=== PATIENT | female | born 1965 | race Caucasian/White ===

== ENCOUNTER 2018-10-07 07:12 | Day surgery (SDC) | payer OTHER ==
--- OUTSIDE RECORDS SUMMARY | 2018-10-07 07:17 | XMS REPORT | Clinical Summary ---
:1965 Author Organization [facility] Address [address] [place] [address] Care Team Providers Name Role Phone Antonio Rivers MD Primary Care Provider Allergies No Known Allergies Medications Medication Sig Dispensed Refills Start Date End Date Status bisoprolol-hydrochloro Take 1 tablet by 0 Active thiazide (ZIAC) mouth daily. 10-6.25 mg per tablet Active Problems No known active problems Family History Medical History Relation Name Comments Heart disease Father Pancreatic cancer Maternal Grandfather Hypertension Mother Stroke Mother Lung cancer Neg Hx Relation Name Status Comments Father Maternal Grandfather Mother Social History Tobacco Use Types Packs/Day Years Used Date Never Assessed Sex Assigned at Date Recorded Not on file Job Start Date Occupation Industry Not on file Not on file Not on file Travel History Travel Start Travel End No recent travel history available. Last Filed Vital Signs Not on file Plan of Treatment Health Maintenance Due Date Last Done Comments CERVICAL CANCER SCREENING 1985 BREAST CANCER SCREENING 2014 COLON CANCER SCREENING 2014 SHINGLES VACCINES (1 of 2) 2014 INFLUENZA VACCINE 05/01/2018 Results Not on fileafter 10/06/2017 Insurance Payer Benefit Plan / Group Subscriber ID Type Phone Address [facility] xxxxxxxxxxx Commercial [employer] xxxxxxxxx Advance Directives Patient has advance care planning documents on file. For more information, please contact:[address] [address]
[2018-10-07] MEDS ORDERED: Ringers Lactate 1,000 ML IV ONE (07:46)
[2018-10-07] MEDS ORDERED: PROPOFOL 200 MG/20 ML VIAL IV ONE (08:15)
[2018-10-07] MEDS ORDERED: LIDOCAINE 1% MPF 5 ML VIAL ONE (08:15)
--- NOTE | 2018-10-07 21:18 | OP ---
Surgeon: Erick Ayala MD Procedure To Be Performed: Colonoscopy. Performing Physician: Erick Ayala M.D. Indication For Procedure: Followup of anal cancer. Plan For Anesthesia: Monitored anesthesia care. Complexity: Average. Technique: After obtaining informed consent from the patient, explaining risks and complications whi ch include but not limited to bleeding, infection, perforation, and anesthesia complication, the julius ent was placed in left lateral position and sedation was given. From then on, digital rectal exam wa s performed that appeared to be normal, and the scope was inserted into the rectum and carefully guid ed up till the terminal ileum. Subsequently, the scope was gradually withdrawn while carefully exami arleen the mucosa. Scope withdrawal time was 11 minutes. Quality of prep according to [place] prep sco re was 06/09. Findings: The terminal ileum appeared normal. There were no gross lesions seen in the entire colon from the proximal rectum till the cecum. Mild vascular changes seen in the distal rectum, likely rel ated to the radiation treatment. Biopsies were taken. No mass lesion was seen on either straight or retroflexed view in the rectum. Complications: None. Tolerance: None. Anesthesia: Excellent. 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 Otherwise, normal colon up to the ter omid ileum. Plan: 1.Await pathology results. 2.Repeat colonoscopy in 2 years. US/MODL Voice ID: [id number] Report ID: [id number]
== END 2018-10-07 09:20 | disposition home or self-care (01) ==
LOC: OR 07:12
PROVIDERS: ATTEND Internal Medicine Gastroenterology
PROC: 0DBP8ZX Excision of Rectum, Via Natural or Artificial Opening Endoscopic, Diagnostic (ICD-10-PCS; principal; 2018-10-07 08:30)
DX: K62.89 Other specified diseases of anus and rectum (principal); Z85.048 Personal history of other malignant neoplasm of rectum, rectosigmoid junction, and anus; K21.0 Gastro-esophageal reflux disease with esophagitis; I10 Essential (primary) hypertension; E66.9 Obesity, unspecified
CPT/HCPCS: 88305; J2704

== ENCOUNTER 2020-12-30 06:49 | Day surgery (SDC) | payer OTHER ==
[2020-12-30] MEDS ORDERED: Ringers Lactate 1,000 ML IV ONE (07:36)
[2020-12-30] MEDS ORDERED: propofoL 200 MG/20 ML VIAL IV ONE (07:48)
[2020-12-30] MEDS ORDERED: LIDOCAINE 1% MPF 30 ML VIAL ONE (07:49)
[2020-12-30] MEDS ORDERED: GLYCOPYRROLATE 0.2 MG/ML SYR ONE (07:49)
[2020-12-30] MEDS ORDERED: SIMETHICONE 40 MG/ 0.6 ML ONE (07:50)
[2020-12-30 08:59] VITALS: TEMP 97.3
[2020-12-30 10:12] VITALS: BP 131/81; O2SAT 99
--- NOTE | 2020-12-30 10:34 | OP ---
Surgeon: Erick Ayala MD Procedure To Be Performed: Colonoscopy. Indications For Procedure: History of anal cancer surveillance. Plan For Anesthesia: Monitored anesthesia care. Complexity: Average. Technique: After obtaining informed consent from the patient explaining risks and complications whic h include, but are not limited to bleeding, infection, perforation, and anesthesia complication, the patient was placed in the left lateral position and sedation was given. From then on, digital rectal exam was performed. There was mild granularity and redness seen in the perineal area of the anal re gion. No mass or lesion seen, likely sequelae of prior treatment. From then on, the scope was intro duced into the rectum and carefully guided up till the terminal ileum. The cecum was identified by t he ileocecal valve and appendiceal orifice. Scope was subsequently slowly withdrawn while carefully examining the mucosa. Findings: Normal terminal ileum, rare diverticula seen in the sigmoid. In the rectum, there was kristine dence of some scarring likely related to prior radiation treatment. No mass, lesion or significant m ucosal abnormality seen. Complications: None. Tolerance To Anesthesia: Excellent. Postoperative Diagnoses: Diverticulosis, post radiation changes in the rectum and anal regions, othe rwise no significant findings. Plan: Continue current management. Repeat colonoscopy in 3 years. Follow up in the GI clinic in 2 weeks. US/MODL Voice ID: [id number] Report ID: [id number]
== END 2020-12-30 09:15 | disposition home or self-care (01) ==
LOC: OR 06:49
PROVIDERS: ATTEND Internal Medicine Gastroenterology
PROC: 0DJD8ZZ Inspection of Lower Intestinal Tract, Via Natural or Artificial Opening Endoscopic (ICD-10-PCS; principal; 2020-12-30 08:00)
DX: Z12.11 Encounter for screening for malignant neoplasm of colon (principal); K57.30 Diverticulosis of large intestine without perforation or abscess without bleeding; Z20.822 Contact with and (suspected) exposure to COVID-19
CPT/HCPCS: 45378; U0002; U0003; J2704; J7120